=== PATIENT | male | born 1975 | race Two or more races ===

== ENCOUNTER 2020-01-25 02:20 | Emergency (ER) | payer OTHER ==
--- NOTE | 2020-01-25 03:12 | PDOC ---
History of Present Illness - General Stated Complaint: ABD PAIN Time Seen by Provider: 01/25/20 03:11 History Source: Patient - History of Present Illness Initial Comments: 01/25/20 03:33 Mr. Lambert is a 44 y/o Kinyar[place] speaking M w/no PMH p/w acute worsening of 5 weeks of abdominal pain. He reports that his pain has been intermittent, generalized over his abdomen, described as an ache, without radiation, 7/10 at onset, 5/10 now. He denies any nausea, vomiting, chest pain, sob, weakness. No prior surgeries. He does not have a PCP at this time. He denies any heavy lifting at work. No sick contacts in the home. He denies any testicular pain or swelling, any penile discharge or dysuria. Past History - Past Medical History Allergies/Adverse Reactions: Allergies Allergy/AdvReac Type Severity Reaction Status Date / Time No Known Allergies Allergy Verified 01/25/20 03:21 Home Medications: Ambulatory Orders Dicyclomine HCl [Bentyl] 20 mg PO Q6H PRN #20 tablet 05/15/15 Famotidine [Pepcid] 40 mg PO DAILY #30 tablet 01/25/20 - Psycho Social/Smoking Cessation Hx Smoking History: Never smoked Substance Use Type: None Review of Systems - Review of Systems Able to Perform ROS?: Yes Comments:: 01/25/20 06:37 GENERAL/CONSTITUTIONAL: No fever or chills. No weakness. HEAD, EYES, EARS, NOSE AND THROAT: No change in vision. No ear pain or discharge. No sore throat. CARDIOVASCULAR: No chest pain or shortness of breath RESPIRATORY: No cough, wheezing, or hemoptysis. GASTROINTESTINAL: Abdominal pain. No nausea, vomiting, diarrhea or constipation. GENITOURINARY: No dysuria, frequency, or change in urination. MUSCULOSKELETAL: No joint or muscle swelling or pain. No neck or back pain. SKIN: No rash NEUROLOGIC: No headache, vertigo, loss of consciousness, or change in strength/sensation. ENDOCRINE: No increased thirst. No abnormal weight change HEMATOLOGIC/LYMPHATIC: No anemia, easy bleeding, or history of blood clots. ALLERGIC/IMMUNOLOGIC: No hives or skin allergy. *Physical Exam - Physical Exam 01/25/20 06:38 GENERAL: Awake, alert, and fully oriented, in no acute distress HEAD: No signs of trauma, normocephalic, atraumatic EYES: PERRLA, EOMI, sclera anicteric, conjunctiva clear ENT: Auricles normal inspection, hearing grossly normal, nares patent, oropharynx clear without exudates. Moist mucosa NECK: Normal ROM, supple, no lymphadenopathy, JVD, or masses LUNGS: No distress, speaks full sentences, clear to auscultation bilaterally HEART: Regular rate and rhythm, normal S1 and S2, no murmurs, rubs or gallops, peripheral pulses normal and equal bilaterally. ABDOMEN: Diffuse mild tenderness. Soft, normoactive bowel sounds. No guarding, no rebound. No masses EXTREMITIES : Normal inspection, Normal range of motion, no edema. No clubbing or cyanosis NEUROLOGICAL: Cranial nerves II through XII grossly intact. Normal speech, normal gait, no focal sensorimotor deficits SKIN: Warm, Dry, normal turgor, no rashes or lesions noted ED Treatment Course - LABORATORY CBC & Chemistry Diagram: 01/25/20 03:52 01/25/20 03:52 Medical Decision Making - Medical Decision Making 01/25/20 06:38 44M w/no PMH p/w acute worsening of assisted abdominal pain. Ddx includes appendicitis, cholecystitis, diverticulitis, although no N/V/D, and not febrile at this time. Gastritis, PUD also possible. Plan: CT abdomen/pelvis w/contrast CBC CMP Lipase EKG CXR UA Troponin Urine culture Ofirmev 1g Pepcid Maalox Reglan Dispo: Pending --- CBC - wnl CMP - ALT 86 Troponin - negative CT abdomen/pelvis - diverticulosis, no diverticulitis or other acute process 01/25/20 06:41 Plan for discharge with PCP, GI follow up Discharge - Discharge Information Problems reviewed: Yes Clinical Impression/Diagnosis: Gastritis Qualifiers: Gastritis type: unspecified gastritis Chronicity: acute Gastritis bleeding: without bleeding Qualified Code(s): K29.00 - Acute gastritis without bleeding Condition: Fair Disposition: HOME - Admission No - Additional Discharge Information Prescriptions: Famotidine [Pepcid] 40 mg PO DAILY #30 tablet - Follow up/Referral Referrals: Thony Plascencia DO [Staff Physician] - [facility] [Provider Group] - Patient Discharge Instructions Patient Printed Discharge Instructions: DI for Gastritis Additional Instructions: Usted fue evaluado en la eryn de urgencias por dolor abdominal. Yenifer niveles de deepthi y escan abdominal estaban normales. Por favor ve a goznalez doctor de cabezera lo mas pronto posible, en 2-3 carbone. Estamos dando referido al [facility] para hacer arsh con un doctor de cabezera. Tambien estamos dando referido a un gastroenterologo (doctor de los intestinos). Zoran arsh para verlo lo mas pronto posible. Regresa a la eryn de urgencias si empiezas a tener fiebres altas, si no puedes comer por causa de nauseas severas, o dolor muy angelo. Print Language: SPA - Post Discharge Activity
[2020-01-25 03:21] VITALS: BP 119/85; PULSE 89; TEMP 97.9; BMI 29.8
[2020-01-25] MEDS ORDERED: ACETAMINOPHEN 1000 MG/100 ML VIAL (NON FORMULARY) IVPB ONE (03:32)
[2020-01-25] MEDS ORDERED: FAMOTIDINE 20 MG/50 ML IVPB 20 MG/50 ML MG IVPB ONE ×2 (03:34→03:42)
[2020-01-25] MEDS ORDERED: MAG HYDROX/AL HYDROX/SIMETH -MYLANTA- ORAL SUSPENSION PO ONE (03:34)
[2020-01-25] MEDS ORDERED: METOCLOPRAMIDE HCL INJECTION 10 MG/2 ML VIAL IVPUSH ONE (03:34)
[2020-01-25] MEDS ORDERED: ACETAMINOPHEN INJECTION 100 ML IVPB ONE (03:35)
--- NOTE | 2020-01-25 03:36 | PDOC ---
Attending Attestation - Resident Resident Name: Magan Mancera - ED Attending Attestation I have performed the following: I have examined & evaluated the patient, The case was reviewed & discussed with the resident, I agree w/resident's findings & plan - HPI HPI: 01/25/20 06:37 Pt comes with abd pain - Physicial Exam PE: 01/25/20 06:37 Normal exam agree with resident exam. No fever No rebound and ni guarding. No flank pain - Medical Decision Making 01/25/20 06:27 Pt is feeling better; he has upper abd pain at times; states that he has epigastric pain after meals and he has pain after drinking coffee. Pt has no Nausea/vomiting/consitpation/diarrhea Pt has no fever Pt has no dysuria and no hematuria Pt has no testicle pain Pt states that he never had abd surg.
[2020-01-25] MEDS ORDERED: METOCLOPRAMIDE HCL INJECTION 10 MG/2 ML VIAL ONE (03:41)
[2020-01-25] MEDS ORDERED: MAG HYDROX/AL HYDROX/SIMETH 30 ML UNIT-DOSE CUP ONE (03:41)
[2020-01-25 04:36] LABS: BASO % 0.2 % (0-2.0); EOS % 0.8 % (0-4.5); HEMOGLOBIN 15.5 GM/dL (11.7-16.9); MCH 31.5 pg (25.7-33.7); MCHC 33.8 g/dl (32.0-35.9); MEAN CELL VOLUME 93.1 fl (80-96); MEAN PLT VOLUME 10.3 fl (7.5-11.1); MONO % 8.9 % (3.8-10.2); NEUT % 78.1 % (42.8-82.8); PLATELET COUNT 158 K/MM3 (134-434); RBC 4.94 M/mm3 (4.00-5.60); RDW 13.6 % (11.9-15.9); WHITE BLOOD COUNT 9.7 K/mm3 (4.0-10.0)
[2020-01-25 05:00] LABS: INR 1.01 (0.83-1.09); PROTHROMBIN TIME (PATIENT) 11.9 SEC (9.7-13.0)
[2020-01-25 05:02] LABS: ACTIVATED PTT 34.9 SECONDS (25.2-36.5)
[2020-01-25 05:05] LABS: ALBUMIN 3.5 g/dl (3.4-5.0); ALK PHOS 132 U/L (45-117); ANION GAP 8 MMOL/L (8-16); BILIRUBIN,TOTAL 0.5 mg/dL (0.2-1); BLOOD UREA NITROGEN 9.5 mg/dL (7-18); CALCIUM 7.7 mg/dL (8.5-10.1); CHLORIDE 107 mmol/L (98-107); CO2 26 mmol/L (21-32); CREATININE 0.8 mg/dL (0.55-1.3); GLUCOSE,RANDOM 107 mg/dL (74-106); LIPASE 177 U/L (73-393); POTASSIUM 3.8 mmol/L (3.5-5.1); SGOT/AST 29 U/L (15-37); SGPT/ALT 86 U/L (13-61); SODIUM 141 mmol/L (136-145)
[2020-01-25 06:55] LABS: URINE COLOR YELLOW
[2020-01-25 06:56] LABS: URINE APPEARANCE CLEAR; URINE BILIRUBIN NEGATIVE (NEGATIVE); URINE GLUCOSE (UA) NEGATIVE (NEGATIVE); URINE KETONE NEGATIVE (NEGATIVE)
[2020-01-25 06:57] LABS: PH,URINE 5.5 (5.0-8.0); URINE LEUK ESTERASE NEGATIVE (NEGATIVE); URINE NITRITE NEGATIVE (NEGATIVE); URINE PROTEIN NEGATIVE (NEGATIVE); URINE UROBILINOGEN 1 mg/dL (0.2-1.0)
== END 2020-01-25 07:13 | disposition home or self-care (01) ==
LOC: JER 02:20
PROC: 3E033GC Introduction of Other Therapeutic Substance into Peripheral Vein, Percutaneous Approach (ICD-10-PCS; principal; 2020-01-25)
PROC: 3E033GC Introduction of Other Therapeutic Substance into Peripheral Vein, Percutaneous Approach (ICD-10-PCS; 2020-01-25)
PROC: 3E033NZ Introduction of Analgesics, Hypnotics, Sedatives into Peripheral Vein, Percutaneous Approach (ICD-10-PCS; 2020-01-25)
DX: K29.00 Acute gastritis without bleeding (principal)
CPT/HCPCS: 36415; 71045-TC-FY; 74177-TC; 80053; 81003; 82550; 83605; 83690; 84484; 85025; 85610; 85730; 87086; 96365; 96375; 99285-25; J0131; Q9967

== ENCOUNTER 2024-04-21 16:37 | Emergency (ER) | payer OTHER ==
[2024-04-21 16:55] VITALS: BP 123/76; PULSE 76; RESP 18; TEMP 98.3; BMI 37.8
[2024-04-21] MEDS ORDERED: FAMOTIDINE 20 MG TABLET ONE (17:34)
[2024-04-21] MEDS ORDERED: MAG HYDROX/AL HYDROX/SIMETH 30 ML UNIT-DOSE CUP ONE (17:34)
[2024-04-21] MEDS ORDERED: SUCRALFATE 1 GM TABLET (FP) ONE (17:35)
[2024-04-21] MEDS: FAMOTIDINE 20 MG TABLET PO ONE (17:45)
[2024-04-21] MEDS: SUCRALFATE 1 GM TABLET (FP) PO ONE (17:45)
[2024-04-21] MEDS: MAG HYDROX/AL HYDROX/SIMETH 30 ML UNIT-DOSE CUP PO ONE (17:45)
[2024-04-21] MEDS ORDERED: ACETAMINOPHEN INJECTION 100 ML IVPB ONE (18:51)
[2024-04-21 18:58] LABS: BASO % 0.3 % (0-2.0); EOS % 0.2 % (0-4.5); HEMATOCRIT 49.5 % (35.4-49); HEMOGLOBIN 16.7 GM/dL (11.7-16.9); LYMPH % 5.3 % (8-40); MCH 31.8 pg (25.7-33.7); MCHC 33.7 g/dl (32.0-35.9); MEAN CELL VOLUME 94.4 fl (80-96); MEAN PLT VOLUME 10.2 fl (7.5-11.1); MONO % 4.8 % (3.8-10.2); NEUT % 89.4 % (42.8-82.8); PLATELET COUNT 134 10^3/uL (134-434); RBC 5.24 M/mm3 (4.00-5.60); RDW 13.6 % (11.9-15.9); WHITE BLOOD COUNT 10.9 K/mm3 (4.0-10.0)
[2024-04-21 19:03] LABS: POTASSIUM 4.6 mmol/L (3.5-5.1)
[2024-04-21 19:07] LABS: ALBUMIN 4.3 g/dl (3.4-5.0); MAGNESIUM 2.2 mg/dL (1.8-2.4)
[2024-04-21] MEDS: ACETAMINOPHEN 1000 MG/100 ML BAG IVPB ONE (19:08)
[2024-04-21 19:10] LABS: CREATININE 0.8 mg/dL (0.55-1.3)
[2024-04-21 19:11] LABS: BILIRUBIN,TOTAL 0.9 mg/dL (0.2-1); TOT PROT 7.9 g/dl (6.4-8.2)
[2024-04-21 19:16] LABS: PH,URINE 5.5 (5.0-8.0); URINE APPEARANCE CLEAR; URINE BILIRUBIN NEGATIVE (NEGATIVE); URINE COLOR YELLOW; URINE GLUCOSE (UA) NEGATIVE (NEGATIVE); URINE KETONE TRACE (NEGATIVE); URINE LEUK ESTERASE NEGATIVE (NEGATIVE); URINE NITRITE NEGATIVE (NEGATIVE); URINE PROTEIN NEGATIVE (NEGATIVE); URINE UROBILINOGEN 0.2 mg/dL (0.2-1.0)
== END 2024-04-21 21:06 | disposition home or self-care (01) ==
LOC: JER 16:37
PROC: 3E033NZ Introduction of Analgesics, Hypnotics, Sedatives into Peripheral Vein, Percutaneous Approach (ICD-10-PCS; principal; 2024-04-21)
DX: R10.33 Periumbilical pain (principal); G89.29 Other chronic pain; R11.10 Vomiting, unspecified; R68.83 Chills (without fever); R07.89 Other chest pain; K29.50 Unspecified chronic gastritis without bleeding
CPT/HCPCS: 36415; 71046-TC-FY; 74177-TC; 80053; 81003; 83690; 83735; 84484; 85025; 87086; 93005; 93010; 99285-25; J0131; Q9967